=== PATIENT | female | born 1965 | race American Indian/Alaskan Native ===

== ENCOUNTER 2018-07-02 07:43 | Emergency (ER) | payer OTHER ==
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
== END 2018-07-02 09:50 | disposition home or self-care (01) ==
LOC: ED 07:43
CPT/HCPCS: 99282